=== PATIENT | male | born 1955 | race Caucasian/White ===

== ENCOUNTER 2022-12-09 08:12 | Emergency (ER) | payer MEDICARE ==
[~2022-12-09] VITALS: Ht 172.7 cm; Wt 100.8 kg
[2022-12-09] MEDS ORDERED: PAXI10TA13 PO (08:20)
[2022-12-09] MEDS ORDERED: PROP60TA14 PO (08:20)
[2022-12-09] MEDS ORDERED: LIDOCAINE 2% 5ML JELLY UROJET TOP ONE (08:45)
[2022-12-09 09:27] LABS: BASO # 0.1 10^3/uL (0.0-0.2); BASO % 0.5 % (0.0-1.0); EOS # 0.1 10^3/uL (0.0-0.5); EOS % 0.5 % (0.0-3.0); HEMOGLOBIN 14.8 g/dl (13.5-17.5); LYMPH # 1.3 10^3/uL (1.5-5.0); LYMPH % 11.5 % (24.0-44.0); MEAN CORPUSCULAR HGB CONC 33.6 g/dl (32.0-36.5); MEAN CORPUSCULAR VOLUME 89.1 fl (80.0-96.0); MONO # 0.6 10^3/uL (0.0-0.8); MONO % 5.5 % (2.0-8.0); NEUTROPHILS # 8.9 10^3/uL (1.5-8.5); NEUTROPHILS % 81.6 % (36.0-66.0); PLATELET COUNT, AUTOMATED 262 10^3/uL (150-450); RED BLOOD COUNT 4.94 10^6/uL (4.30-6.10); WHITE BLOOD COUNT 10.9 10^3/uL (4.0-10.0)
[2022-12-09 09:52] LABS: BLOOD UREA NITROGEN 26 MG/DL (9-23); CARBON DIOXIDE LEVEL 26 MMOL/L (20-31); CHLORIDE LEVEL 103 MMOL/L (98-107); CREATININE FOR GFR 1.18 MG/DL (0.70-1.30); GLOMERULAR FILTRATION RATE > 60.0 (>49); GLUCOSE, FASTING 208 MG/DL (74-106); POTASSIUM SERUM 4.8 MMOL/L (3.5-5.1); SODIUM LEVEL 135 MMOL/L (136-145)
[2022-12-09 10:29] VITALS: BP 162/87
[2022-12-09 13:13] LABS: HEMOGLOBIN A1c 7.3 % (4.0-6.0)
== END 2022-12-09 11:17 | disposition home or self-care (01) ==
LOC: M ED 08:12
DX: R33.9 Retention of urine, unspecified (principal); R73.9 Hyperglycemia, unspecified; I10 Essential (primary) hypertension; F41.9 Anxiety disorder, unspecified; Z79.899 Other long term (current) drug therapy

== ENCOUNTER 2022-12-11 08:29 | Emergency (ER) | payer MEDICARE ==
[~2022-12-11] VITALS: Ht 172.7 cm; Wt 99.4 kg
[~2022-12-11 08:29] MED LIST: PAXI10TA13 PO; PROP60TA14 PO
[2022-12-11 15:29] VITALS: BP 158/85
== END 2022-12-11 15:35 | disposition home or self-care (01) ==
LOC: M ED 08:29
DX: R33.9 Retention of urine, unspecified (principal); I10 Essential (primary) hypertension; F41.9 Anxiety disorder, unspecified; Z79.899 Other long term (current) drug therapy

== ENCOUNTER 2023-01-17 00:09 | Observation (INO) | payer MEDICARE ==
[~2023-01-17] VITALS: Ht 172.7 cm; Wt 93.6 kg
[2023-01-17] MEDS ORDERED: METF-838 PO (00:23)
[2023-01-17 00:40] LABS: APPEARANCE, URINE MANUAL CLEAR (CLEAR); COLOR, URINE MANUAL YELLOW (YELLOW); PROTEIN, URINE MANUAL NEGATIVE (NEGATIVE)
[2023-01-17 00:41] LABS: BILIRUBIN, URINE MANUAL NEGATIVE (NEGATIVE); BLOOD URINE MANUAL TRACE (NEGATIVE); GLUCOSE, URINE (UA) MANUAL NEGATIVE (NEGATIVE); KETONE, URINE MANUAL 1+ mg/dL (NEGATIVE); LEUKOCYTE ESTERASE, URINE MAN TRACE (NEGATIVE); NITRITE, URINE MANUAL NEGATIVE (NEGATIVE); UROBILINOGEN, URINE MANUAL NORMAL (NORMAL)
[2023-01-17 00:56] LABS: BACTERIA, URINE SMALL AMOUNT; HYALINE CAST, URINE NONE SEEN /lpf (0-1); MUCUS, URINE SMALL AMOUNT (NEGATIVE); SQUAMOUS EPITHELIAL CELL URINE SMALL AMOUNT /hpf (SMALL AMT)
[2023-01-17] MEDS ORDERED: GLUCAGON INJ 1MG VIAL SC PRN (01:55)
[2023-01-17] MEDS ORDERED: ONDANSETRON 4MG 2ML VIAL IV PRN (01:55)
[2023-01-17] MEDS ORDERED: KETOROLAC 30 MG/ML 1ML VIAL IV PRN (01:55)
[2023-01-17] MEDS ORDERED: GLUCOSE 4GM CHEW TABLET PO PRN (01:55)
[2023-01-17] MEDS ORDERED: DEXTROSE 50% 50ML SYRINGE IV PRN (01:55)
[2023-01-17] MEDS ORDERED: HYDROMORPHONE HCL 0.5 MG/ 0.5 ML SYRINGE IV PRN (01:55)
[2023-01-17] MEDS ORDERED: VITA-243 PO (02:07)
[2023-01-17] MEDS ORDERED: VITA100093 PO (02:07)
[2023-01-17] MEDS ORDERED: HOME MED LIST COMPLETE! XX SCH (02:10)
[2023-01-17] MEDS ORDERED: PROP80CA PO (02:12)
[2023-01-17 02:23] LABS: BASO % 0.5 % (0.0-1.0); EOS # 0.1 10^3/uL (0.0-0.5); EOS % 1.3 % (0.0-3.0); HEMATOCRIT 41.2 % (42.0-52.0); HEMOGLOBIN 13.8 g/dl (13.5-17.5); LYMPH # 1.3 10^3/uL (1.5-5.0); LYMPH % 16.4 % (24.0-44.0); MEAN CORPUSCULAR HEMOGLOBIN 29.9 pg (27.0-33.0); MEAN CORPUSCULAR HGB CONC 33.5 g/dl (32.0-36.5); MEAN CORPUSCULAR VOLUME 89.2 fl (80.0-96.0); MONO # 0.6 10^3/uL (0.0-0.8); MONO % 8.1 % (2.0-8.0); NEUTROPHILS # 5.6 10^3/uL (1.5-8.5); NEUTROPHILS % 73.6 % (36.0-66.0); PLATELET COUNT, AUTOMATED 211 10^3/uL (150-450); RED BLOOD COUNT 4.62 10^6/uL (4.30-6.10); WHITE BLOOD COUNT 7.7 10^3/uL (4.0-10.0)
[2023-01-17 02:52] LABS: BLOOD UREA NITROGEN 28 MG/DL (9-23); CALCIUM LEVEL 9.4 MG/DL (8.3-10.6); CARBON DIOXIDE LEVEL 22 MMOL/L (20-31); CHLORIDE LEVEL 107 MMOL/L (98-107); CREATININE FOR GFR 1.25 MG/DL (0.70-1.30); GLOMERULAR FILTRATION RATE > 60.0 (>49); GLUCOSE, FASTING 105 MG/DL (74-106); POTASSIUM SERUM 4.7 MMOL/L (3.5-5.1); SODIUM LEVEL 138 MMOL/L (136-145)
[2023-01-17] MEDS: NS 1,000 ML IV SCH ×2 (03:30→15:15)
[2023-01-17 04:00] VITALS: BP 147/90; TEMP 97.9; O2SAT 99
[2023-01-17] MEDS: INSULIN LISPRO (NovoLOG) PER UNIT SC SCH ×2 (07:30→12:00)
[2023-01-17] MEDS ORDERED: ISOVUE-300 61% 100ML VIAL As Ordered ONE (10:21)
[2023-01-17] MEDS ORDERED: ceFAZolin 2 GM/D5W 50 ML IV BAG As Ordered ONE (10:22)
[2023-01-17] MEDS ORDERED: LIDOCAINE 2% 100MG/5ML SDV (FOR ANES.) As Ordered ONE (10:36)
[2023-01-17] MEDS ORDERED: ONDANSETRON 4MG 2ML VIAL As Ordered ONE (10:36)
[2023-01-17] MEDS ORDERED: fentaNYL 100 MCG/2 ML INJECTION As Ordered ONE (10:36)
[2023-01-17] MEDS ORDERED: propofoL 200 MG/20 ML VIAL As Ordered ONE (10:36)
[2023-01-17] MEDS ORDERED: MIDAZOLAM INJ 2MG/2ML VIAL As Ordered ONE (10:36)
[2023-01-17] MEDS ORDERED: ACETAMINOPHEN 1000MG 100ML IV BAG As Ordered ONE (10:36)
[2023-01-17] MEDS ORDERED: ePHEDrine SULFATE 25 MG/5 ML(5MG/ML) SYRINGE As Ordered ONE (10:37)
[2023-01-17] MEDS ORDERED: LIDOCAINE 2% 5ML JELLY UROJET As Ordered ONE (10:55)
[2023-01-17 12:00] VITALS: BP 133/76; TEMP 97.5; O2SAT 95
[2023-01-17 12:30] VITALS: BP 146/75; TEMP 97.5; O2SAT 95
[2023-01-17] MEDS ORDERED: PERCOCET 5MG/325MG TAB PO PRN ×2 (12:45)
[2023-01-17] MEDS ORDERED: MORPHINE 4 MG/ML 1ML VIAL IV PRN (12:45)
[2023-01-17 13:30] VITALS: BP 140/76; TEMP 97.6; O2SAT 95
[2023-01-17 14:30] VITALS: BP 133/75; TEMP 97.6; O2SAT 95
[2023-01-17] MEDS ORDERED: FLOM0.4C39 PO (15:57)
[2023-01-17] MEDS ORDERED: CIPR-249 PO (15:57)
[2023-01-17] MEDS ORDERED: CIPROFLOXACIN 500MG TABLET PO ONE (16:30)
[2023-01-17] MEDS ORDERED: TAMSULOSIN 0.4 MG CAP PO ONE (16:30)
[2023-01-17] MEDS ORDERED: PARoxetine 10MG TABLET PO SCH (21:00)
[2023-01-17] MEDS ORDERED: PROPRANOLOL 80MG LA CAP PO SCH (21:00)
[2023-01-17] MEDS ORDERED: INSULIN LISPRO (NovoLOG) PER UNIT SC SCH (21:00)
[2023-01-21 13:07] LABS: CA Oxalate Dihy 20 % (.); Ca Ox Monohydrate 80 % (.); Size 10x11 mm (.)
[2023-01-21 13:07] LABS: CA Oxalate Dihy 10 % (.); Ca Ox Monohydrate 90 % (.)
== END 2023-01-17 16:45 | disposition home or self-care (01) ==
LOC: M ED 00:09 → M ED INP 00:10 → M MS5PR 03:49
PROVIDERS: ADMIT Internal Medicine; ATTEND General Practice
DX: N21.1 Calculus in urethra (principal); N20.1 Calculus of ureter; E11.9 Type 2 diabetes mellitus without complications; I10 Essential (primary) hypertension; R33.9 Retention of urine, unspecified; Z79.84 Long term (current) use of oral hypoglycemic drugs; Z79.899 Other long term (current) drug therapy
CPT/HCPCS: 51702; 52356; 74176; 74420; 80048; 81000; 82365; 85025; 87635; 93005; 99285; C1769; C2617; G0378; J0131; J0690; J2250; J2405; J3010; Q9967